=== PATIENT | female | born 1980 | race Caucasian/White ===

== ENCOUNTER 2016-05-14 14:19 | Inpatient (IN) | payer OTHER ==
[~2016-05-14] VITALS: Ht 170.2 cm; Wt 114.7 kg
[~2016-05-14 14:19] MED LIST: URSO300C21 PO
[2016-05-14 16:23] VITALS: Ht 170.2 cm; Wt 114.7 kg
[2016-05-14] MEDS ORDERED: MISOPROSTOL 200 MCG TAB PR PRN (17:30)
[2016-05-14] MEDS ORDERED: OXYTOCIN 30 UNITS/LR 500 ML IV PRN (17:30)
[2016-05-14] MEDS ORDERED: CARBOPROST 250 MCG INJ IM PRN (17:30)
[2016-05-14] MEDS ORDERED: METHYLERGONOVINE 0.2 MG INJ IM PRN (17:30)
[2016-05-14] MEDS ORDERED: OXYTOCIN 30 UNITS/LR 500 ML IV SCH ×3 (17:30→23:30)
[2016-05-14] MEDS ORDERED: LIDOCAINE 1% (MPF) 30 ML INJ INJ PRN (17:30)
[2016-05-14] MEDS ORDERED: IBUPROFEN 600 MG TAB PO PRN (17:30)
[2016-05-14] MEDS ORDERED: BUTORPHANOL 2 MG INJ IV PRN (17:30)
[2016-05-14] MEDS: LACTATED RINGER'S 1,000 ML IV SCH ×2 (17:33→22:37)
[2016-05-14 17:37] LABS: BASOPHILS % 0.4 % (0.0-2.0); CONDITION 1; EOSINOPHILS # 0.1 10^3/ul (0.0-0.5); EOSINOPHILS % 1.3 % (0.0-7.0); HEMATOCRIT 37.8 % (37.0-47.0); HEMOGLOBIN 13.2 g/dl (12.0-16.0); LYMPHOCYTES # 1.3 10^3/ul (0.8-2.9); LYMPHOCYTES % 14.2 % (15.0-51.0); MEAN CORPUSCULAR VOLUME 91.4 fl (82.0-101.0); MEAN PLATELET VOLUME 7.9 fl (7.4-10.4); MONOCYTE # 0.5 10^3/ul (0.3-0.9); MONOCYTES % 5.1 % (0.0-11.0); NEUTROPHIL # 7.1 10^3/ul (1.6-7.5); PLATELET COUNT 250 10^3/UL (140-440); RED BLOOD COUNT 4.14 10^6/ul (4.20-5.40); RED CELL DISTRIBUTION WIDTH 13.3 % (11.5-14.5); UNCORRECTED WBC 8.9 10^3/ul (4.8-10.8); WHITE BLOOD COUNT 8.9 10^3/ul (4.8-10.8)
[2016-05-14 17:40] LABS: INR 0.9; PARTIAL THROMBOPLASTIN TIME 29.7 Sec (25.0-35.0); PROTIME 12.1 Sec (12.2-14.2); PT RATIO 0.9
[2016-05-14] MEDS ORDERED: DINOPROSTONE 10 MG VAG SUPP VAG ONE (18:00)
--- NOTE | 2016-05-14 18:43 | RADRPT ---
PROCEDURE: US OB. CLINICAL INDICATION: Macrosomia TECHNIQUE: Multiple sonographic images of the pelvis were obtained. Transabdominal imaging only w as performed. The images were reviewed on a PACS workstation. COMPARISON: 04/22/2016 FINDINGS: There is a single viable intrauterine gestation. Cardiac activity is present with 154 beats per min [place]. There is a cephalic presentation. Measurements were made in order to determine age. The results are as follows: BPD = 9.72 cm HC = 34.26 cm AC = 35.75 cm FL = 7.67 cm Gestational age is 39 weeks 4 days and NAZIA is 05/17/2016 by ultrasound criteria. Gestational age is 39 weeks 6 days and NAZIA is 05/15/2016 by LMP. EFW = 3827 g +/- 574 g (70 %). The placenta is anterior. There is no evidence for an abruption or placenta previa. IMPRESSION: 1. Single live intrauterine gestation of approximately 39 weeks 4 days by ultrasound criteria. RPTAT: EE .Toan Merritt MD, Date Time Electronically viewed and signed by .Toan Merritt MD, on 05/14/2016 18:43 .R/
[2016-05-14] MEDS: LACTATED RINGER'S 1,000 ML IV PRN (23:34)
[2016-05-15] MEDS ORDERED: FENTAnyl 2MCG/ML-ROPIV 0.2% 100 ML ONE ×2 (00:21→07:26)
[2016-05-15] MEDS: LACTATED RINGER'S 1,000 ML IV PRN (01:03)
--- NOTE | 2016-05-15 08:23 | HP ---
Date/Time of Note Date/Time of Note DATE: 05/15/16 TIME: 08:16 OB - History Hx of Present Free Text/Dictation 35y.o at 39w6d lost f/u for the last 3weeks after consultation for cholestasis , showed up on 05/14/16 admitted for induction of labor she had been on ursordiol 300mg tid ve long closed Chief Complaint: induction Estimated Due Date: May 15, 2016 : 2 Para: 1 Spontaneous : 0 Therapeutic : 0 Care: Good Care Obstetrical Complications: Other (cholestasis) Medical Complications: Gastrointestinal (cholestasis) Past Family/Social History * Past Medical, Surgical, Family and Obstetric Histories reviewed from chart. Blood Type: B+ Rubella: immune RPR/VDRL: Negative GBS Status: Negative HBsAG: Negative OB Admission Exam Physical Exam HEENT: WNL Heart: Rhythm Normal Lungs: Clear, Equal Abdomen: WNL Extremities: Normal Reflexes: Normal Cervical Dilatation: None Effacement: 50% Station: -3 Membranes: Intact Amniotic Fluid: Unevaluable Heart Rate: 140's Accelerations: Accelerations Present Decelerations: No Decelerations Varibility: Moderate Contractions on Admission: 6-10 Minutes Apart Intensity: Mild Last 72 hours Lab Results CBC & BMP 05/14/16 16:20 OB Assessment/Plan Reason for admission: induction of labor Other Assessment: cholestasis Plan: Induction Induction Method: per Misoprostol Protocol TRA BROWNLEE MD May 15, 2016 08:23
--- NOTE | 2016-05-15 08:26 | LDN ---
Date/Time of Note Date/Time of Note DATE: 05/15/16 TIME: 08:23 Delivery Summary Placenta Delivered: Spontaneously Meconium: none Perineum intact?: No Perineal laceration: 1 Perineal laceration repair: vaginal laceration Anesthesia type: Epidural Estimated blood loss: 100 Sponge & Needle done & correct: Yes All needle counts correct: Yes Any foreign bodies felt in the: No Problems: Infant Delivery Information Sex Infant Sex: male Apgars 1 Minute: 9 5 Minute: 9 Suctioning Nose & mouth suctioned at radha: Yes Delee suction performed: No Umbilical Cord Umbilical cord with: 3 Vessels Cord presentations: no nuchal cord Cord Blood was obtained: Yes Mother & Baby Disposition Disposition Mom & Baby to Maternity; Good: Yes Baby to NICU: No () TRA BROWNLEE MD May 15, 2016 08:26
[2016-05-15] MEDS ORDERED: NALOXONE (0.4 MG/ML) INJ IV PRN (08:30)
[2016-05-15] MEDS ORDERED: FENTAnyl 2MCG/ML-ROPIV 0.2% 100 ML BAG EPI SCH (08:30)
[2016-05-15] MEDS ORDERED: HYDROmorphONE 1 MG/ML SYG IV PRN ×2 (08:30)
[2016-05-15] MEDS ORDERED: KETOROLAC 30 MG INJ IV PRN (08:30)
[2016-05-15] MEDS ORDERED: DIPHENHYDRAMINE 50 MG INJ IV PRN (08:30)
[2016-05-15] MEDS ORDERED: LANOLIN 7 GM TUBE TOP PRN (09:30)
[2016-05-15] MEDS ORDERED: CARBOPROST 250 MCG INJ IM PRN (09:30)
[2016-05-15] MEDS ORDERED: MISOPROSTOL 200 MCG TAB PR PRN (09:30)
[2016-05-15] MEDS ORDERED: WITCH HAZEL/GLYCERIN PAD PR PRN (09:30)
[2016-05-15] MEDS ORDERED: OXYCODONE/ASPIRIN (4.88/325) TAB PO PRN ×2 (09:30)
[2016-05-15] MEDS ORDERED: BENZOCAINE 20% 56 ML SPRAY TOP PRN (09:30)
[2016-05-15] MEDS ORDERED: ZOLPIDEM 5 MG TAB PO PRN (09:30)
[2016-05-15] MEDS ORDERED: OXYTOCIN 30 UNITS/LR 500 ML IV PRN (09:30)
[2016-05-15] MEDS ORDERED: METHYLERGONOVINE 0.2 MG INJ IM PRN (09:30)
[2016-05-15 10:30] VITALS: BP 127/69; PULSE 69; RESP 18
[2016-05-15 11:00] VITALS: BP 130/69; PULSE 67; RESP 17
[2016-05-15] MEDS: IBUPROFEN 600 MG TAB PO SCH ×3 (12:19→23:35)
[2016-05-15 16:00] VITALS: BP 100/52; PULSE 83; RESP 17
[2016-05-15 19:35] VITALS: BP 111/61; PULSE 88; RESP 18
[2016-05-15] MEDS: SENNA/DOCUSATE NA (8.6MG/50MG) TAB PO SCH (21:06)
[2016-05-15] MEDS ORDERED: PROMETHAZINE/DM (CUP) PO PRN (22:00)
[2016-05-15] MEDS ORDERED: PROMETHAZINE (1.25 MG/ML) 5 ML CUP PO PRN (22:30)
[2016-05-16] VITALS: BP 116/67; PULSE 83; RESP 18
[2016-05-16 04:15] VITALS: BP 101/48; PULSE 66; RESP 18
[2016-05-16] MEDS: IBUPROFEN 600 MG TAB PO SCH ×3 (05:55→17:34)
[2016-05-16 06:11] LABS: BASOPHILS % 0.2 % (0.0-2.0); EOSINOPHILS # 0.2 10^3/ul (0.0-0.5); EOSINOPHILS % 1.8 % (0.0-7.0); HEMATOCRIT 33.5 % (37.0-47.0); HEMOGLOBIN 11.7 g/dl (12.0-16.0); LYMPHOCYTES # 1.8 10^3/ul (0.8-2.9); LYMPHOCYTES % 17.8 % (15.0-51.0); MEAN CORPUSCULAR HEMOGLOBIN 32.1 pg (29.0-33.0); MEAN CORPUSCULAR HGB CONC 34.9 g/dl (32.0-37.0); MEAN CORPUSCULAR VOLUME 91.9 fl (82.0-101.0); MEAN PLATELET VOLUME 7.8 fl (7.4-10.4); MONOCYTE # 0.5 10^3/ul (0.3-0.9); MONOCYTES % 5.1 % (0.0-11.0); NEUTROPHIL # 7.5 10^3/ul (1.6-7.5); NEUTROPHILS % 75.1 % (39.0-77.0); PLATELET COUNT 217 10^3/UL (140-440); RED BLOOD COUNT 3.65 10^6/ul (4.20-5.40); RED CELL DISTRIBUTION WIDTH 13.5 % (11.5-14.5); UNCORRECTED WBC 9.9 10^3/ul (4.8-10.8); WHITE BLOOD COUNT 9.9 10^3/ul (4.8-10.8)
[2016-05-16 06:17] LABS: CONDITION 1
[2016-05-16 08:15] VITALS: BP 121/67; PULSE 86; RESP 16
[2016-05-16] MEDS: SENNA/DOCUSATE NA (8.6MG/50MG) TAB PO SCH ×2 (09:00→21:30)
[2016-05-16 16:00] VITALS: BP 102/52; PULSE 69; RESP 16
[2016-05-16] MEDS: GUAIFENESIN/DM 5ML CUP PO PRN (19:14)
[2016-05-16 19:45] VITALS: BP 104/62; PULSE 80; RESP 0
[2016-05-17] MEDS: IBUPROFEN 600 MG TAB PO SCH ×2 (00:25→06:05)
[2016-05-17 04:20] VITALS: BP 128/63; PULSE 64; RESP 18
[2016-05-17 08:33] VITALS: BP 123/89; PULSE 82; RESP 20
[2016-05-17] MEDS: SENNA/DOCUSATE NA (8.6MG/50MG) TAB PO SCH (08:33)
[2016-05-17] MEDS: GUAIFENESIN/DM 5ML CUP PO PRN (08:33)
[2016-05-17] MEDS ORDERED: DIPHTH/TET/ACEL PERTUSS (ADULT) 0.5 ML VIAL IM* ONE (09:00)
--- NOTE | 2016-05-17 13:12 | PD.PPDC ---
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
--- NOTE | 2016-05-17 13:14 | DS ---
Date/Time of Note Date/Time of Note DATE: 05/17/16 TIME: 13:13 Obstetrical Discharge Record Final Diagnosis Final Diagnosis: Term delivered Vaginal Delivery Obstetrical Delivery: Spontaneous, Laceration, Repaired Complications Induction: Yes Condition on Discharge Physical Assessment Last Vitals: vss afebrile Voiding: Yes Bowel Movement: Yes Breast: Soft, non-tender Calf Tenderness: No Patient Condition: Stable TRA BROWNLEE MD May 17, 2016 13:14
== END 2016-05-17 15:45 | disposition home or self-care (01) | DRG 775 ==
LOC: L-D 15:53 → PP1 05-15 10:09 → EDSTATUS 05-15 14:16
PROVIDERS: ADMIT Obstetrics & Gynecology; ATTEND Obstetrics & Gynecology
PROC: 10E0XZZ Delivery of Products of Conception, External Approach (ICD-10-PCS; principal; 2016-05-15)
PROC: 0HQ9XZZ Repair Perineum Skin, External Approach (ICD-10-PCS; 2016-05-15)
DX: O99.214 Obesity complicating childbirth (principal); E66.9 Obesity, unspecified; Z68.39 Body mass index [BMI] 39.0-39.9, adult; O71.4 Obstetric high vaginal laceration alone; Z3A.39 39 weeks gestation of pregnancy; Z37.0 Single live birth
CPT/HCPCS: 62319; 76815; 85025; 85610; 85730; 86592; 86900; 86901; 87340; 90715; J2590; J3010; J7120

== ENCOUNTER 2017-12-29 18:19 | Emergency (ER) | END 2017-12-29 20:25 | disposition left against medical advice (07) ==

== ENCOUNTER 2019-02-03 16:16 | Emergency (ER) | payer SELFPAY ==
[~2019-02-03] VITALS: Ht 167.6 cm; Wt 128.9 kg
[2019-02-03 16:46] VITALS: BP 134/58; PULSE 97; RESP 20; Ht 167.6 cm; Wt 128.9 kg
== END 2019-02-03 18:25 | disposition left against medical advice (07) ==
LOC: FTE 16:16
DX: Z53.21 Procedure and treatment not carried out due to patient leaving prior to being seen by health care provider (principal)